=== PATIENT | male | born 1990 | race Two or more races ===

== ENCOUNTER 2020-05-08 12:05 | Emergency (ER) | payer OTHER ==
[~2020-05-08] VITALS: Ht 170.2 cm; Wt 81.1 kg
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
[2020-05-08 12:50] VITALS: BP 121/75
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
== END 2020-05-08 13:11 | disposition home or self-care (01) ==
LOC: ER 12:05
DX: S16.1XXA Strain of muscle, fascia and tendon at neck level, initial encounter (principal); S80.12XA Contusion of left lower leg, initial encounter; S00.81XA Abrasion of other part of head, initial encounter; V43.52XA Car driver injured in collision with other type car in traffic accident, initial encounter; Y93.I9 Activity, other involving external motion; Y92.488 Other paved roadways as the place of occurrence of the external cause; Y99.8 Other external cause status
CPT/HCPCS: 72040; 73590; 99284